=== PATIENT | female | born 1950 | race Caucasian/White ===

== ENCOUNTER 2017-01-16 12:43 | Day surgery (SDC) | payer OTHER, MEDICARE ==
[~2017-01-16 12:43] MED LIST: BENICAR HCT 201 EACH PO; BENICAR PO; DETROL2 M1 PO; EFFEXOR XR75 M1 PO; EFFEXOR XR75 MG PO; FIBER PO; MULTIVITAMIN1 TAB PO
[2017-01-16 13:20] LABS: BASO ABSOLUTE COUNT 0.1 tho/cmm (0.0-0.2); EOS % 2.2 % (0-7); EOSINOPHIL ABSOLUTE COUNT 0.1 tho/cmm (0.0-0.7); HCT-HEMATOCRIT 40.4 % (34.0-49.0); HGB-HEMOGLOBIN 13.5 gm/dl (12.0-15.5); IMMATURE GRANULOCYTES ABSOLUTE 0.01 tho/cmm (0-0.03); IMMATURE GRANULOCYTES PERCENT 0.2 % (0-0.3); LYMPH % 33.6 % (20-45); LYMPH ABSOLUTE COUNT 1.7 tho/cmm (0.8-4.5); MCHC MEAN CORPUSCULAR HGB CONC 33.4 % (32.0-36.0); MCV (MEAN CELL VOLUME) 92.7 fl (82.0-96.0); MEAN PLATELET VOLUME 9.1 cmc (9.4-12.4); MONO % 7.2 % (0-12); MONOCYTE ABSOLUTE COUNT 0.4 tho/cmm (0.0-1.2); NEUTROPHIL ABSOLUTE COUNT 2.8 tho/cmm (1.6-8.0); NEUTROPHIL-AUTOMATED 2.8 tho/cmm (1.6-8.0); NEUTROPHILS % 55.8 % (40-80); PLATELET COUNT 242 tho/cmm (150-450); RED BLOOD COUNT 4.36 mil/cmm (4.00-5.20)
[2017-01-16 13:33] LABS: ANION GAP 14 mmol/L (0-20); BLOOD UREA NITROGEN 11 mg/dl (6-24); CALCIUM 8.9 mg/dl (8.5-10.5); CARBON DIOXIDE-VENOUS 27 mmol/L (22-32); CHLORIDE 103 mmol/l (96-110); CREATININE 0.77 mg/dl (0.50-1.10); GLUCOSE 106 mg/dL (70-110); POTASSIUM 3.9 mmol/L (3.7-5.1); SODIUM 140 mmol/L (135-145); eGFR VALUE FOR BLACK >90 mL/Min
== END 2017-01-16 15:47 ==
LOC: SHSB 12:43 → ENDOS 14:15
PROVIDERS: Anesthesiology
PROC: 0DBN8ZZ Excision of Sigmoid Colon, Via Natural or Artificial Opening Endoscopic (ICD-10-PCS; principal; 2017-01-16)
DX: Z08 Encounter for follow-up examination after completed treatment for malignant neoplasm (principal); I78.1 Nevus, non-neoplastic; K57.30 Diverticulosis of large intestine without perforation or abscess without bleeding; K63.5 Polyp of colon; I10 Essential (primary) hypertension; F32.9 Major depressive disorder, single episode, unspecified; J45.909 Unspecified asthma, uncomplicated; M19.90 Unspecified osteoarthritis, unspecified site; Z79.899 Other long term (current) drug therapy; Z85.048 Personal history of other malignant neoplasm of rectum, rectosigmoid junction, and anus; Z86.010 Personal history of colon polyps; Z80.0 Family history of malignant neoplasm of digestive organs; Z98.51 Tubal ligation status; Z90.89 Acquired absence of other organs; Z98.84 Bariatric surgery status; Z98.890 Other specified postprocedural states